=== PATIENT | female | born 1985 | race Caucasian/White ===

== ENCOUNTER 2022-03-04 23:50 | Emergency (ER) | payer OTHER ==
[~2022-03-04] VITALS: Ht 175.3 cm; Wt 81.6 kg
--- NOTE | 2022-03-05 00:07 | NUR ---
BIBRA FROM HOME TO ER BED 10. AAOX4. NOT IN RESP DISTRESS. BROUGHT IN FOR DISSFUSED ABD PAIN W/ NAUSEA, EPISODES OF VOMMTING AND DIARRHEA WHICH STARTED AT 1500 TODAY. DENIES ANY BLOOD ON STOOL AND VOMMIT.
--- NOTE | 2022-03-05 00:10 | NUR ---
LAC #20G S/L BLOOD COLLECTED AND SENT TO LAB
[2022-03-05] MEDS ORDERED: DICYCLOMINE HCL INJ 20 MG/2 ML AMPUL IM ONE ×4 (00:15→04:30)
[2022-03-05] MEDS ORDERED: ONDANSETRON HCL/PF 4 MG/2 ML VIAL ONE ×2 (00:15→04:26)
--- NOTE | 2022-03-05 00:29 | NUR ---
PT NOT ABLE TO GIVE URINE SAMPLE; WILL F/U
[2022-03-05] MEDS ORDERED: IV NS 0.9% 1,000 ML BAG IV ONE (00:30)
[2022-03-05] MEDS ORDERED: ONDANSETRON HCL/PF 4 MG/2 ML VIAL IVP ONE (00:30)
[2022-03-05 00:34] LABS: BASOPHILS % (AUTO) 0.1 % (0.0-2.0); HEMATOCRIT 41 % (33-45); HEMOGLOBIN 13.5 g/dL (11.5-14.8); LYMPHOCYTES # (AUTO) 0.1 K/uL (0.8-4.8); LYMPHOCYTES % (AUTO) 1.2 % (20.0-44.0); MEAN CORPUSCULAR HGB CONC 33 g/dl (31.0-36.0); MEAN CORPUSCULAR VOLUME 82 fL (82-100); MONOCYTES # (AUTO) 0.3 K/uL (0.1-1.30); MONOCYTES % (AUTO) 2.9 % (2.0-12.0); NEUTROPHILS % (AUTO) 95.8 % (43.0-81.0); PLATELET COUNT (AUTO) 220 K/uL (150-450); RED BLOOD CELL COUNT(AUTO) 4.92 MIL/uL (4.0-5.2); WHITE BLOOD COUNT (AUTO) 11.5 K/uL (4.3-11.0)
[2022-03-05 00:52] LABS: ALBUMIN 4.2 g/dL (3.4-5.0); BILIRUBIN,DIRECT 0.1 mg/dL (0.0-0.2); BILIRUBIN,TOTAL 0.6 mg/dL (0.2-1.0); CALCIUM, SERUM 8.8 mg/dL (8.5-10.1); CREATININE 0.8 mg/dL (0.6-1.3); POTASSIUM 3.9 mmol/L (3.5-5.1); TOTAL PROTEIN, SERUM 8.1 g/dL (6.4-8.2)
--- NOTE | 2022-03-05 01:35 | NUR ---
URINE COLLECTED AND SENT [facility]
--- NOTE | 2022-03-05 01:53 | NUR ---
PT SIGNED WAIVER FORM; INFORMED RADIOLOGY
[2022-03-05 03:32] LABS: BILIRUBIN,URINE NEGATIVE (NEGATIVE); COLOR,URINE YELLOW (YELLOW); LEUKOCYTE ESTERASE ,URINE NEGATIVE (NEGATIVE); NITRITE, URINE NEGATIVE (NEGATIVE); PROTEIN,URINE NEGATIVE (NEGATIVE); UGLUCOSE NEGATIVE (NEGATIVE); UROBILINOGEN,URINE 0.2 EU/dL (0.2)
--- NOTE | 2022-03-05 04:21 | NUR ---
CALLED STAT RAD ETA OF CT REPORT IS 15 MINUTES
[2022-03-05] MEDS ORDERED: ONDANSETRON HCL/PF 4 MG/2 ML VIAL IV ONE (04:30)
[2022-03-05] MEDS ORDERED: ONDA4TAB5 PO (05:47)
[2022-03-05] MEDS ORDERED: DICY10CA37 PO (05:47)
[2022-03-05 06:15] VITALS: BP 112/78
--- NOTE | 2022-03-05 06:15 | NUR ---
Patient discharged to home in stable condition. Written and verbal after care instructions given. Patient verbalizes understanding of instruction. pt ambulatory with a steady gait. IV removed. Catheter intact and site benign. Pressure and 4x4 applied to site. No bleeding noted.
[2022-03-05 07:48] LABS: BACTERIA,URINE Rare /HPF (None Seen); RBC,URINE NONE SEEN /HPF (0-2); SQUAMOUS EPITHELIAL CELL,UR Few /HPF (None Seen); WBC,URINE 0-2 /HPF (0-3)
== END 2022-03-05 06:16 | disposition home or self-care (01) ==
LOC: ER 23:58
DX: K52.9 Noninfective gastroenteritis and colitis, unspecified (principal); F41.9 Anxiety disorder, unspecified; Z60.2 Problems related to living alone
CPT/HCPCS: 36415; 74176; 80048; 80076; 81001; 83690; 84703; 85025; 85730; 96361; 96372 ×2; 96374; 96376; 99285; J0500 ×2; J2405 ×2; J7030